=== PATIENT | female | born 1965 | race Caucasian/White ===

== ENCOUNTER 2022-03-07 09:44 | Outpatient (CLI) | payer MEDICAID, SELFPAY ==
[2022-03-07 10:03] LABS: Basophils Absolute Auto 0.02 K/uL (0.00-0.30); Basophils Percent Auto 0.3 % (0.0-3.0); Eosinophils Absolute Auto 0.03 K/uL (0.00-0.50); Eosinophils Percent Auto 0.5 % (0.0-7.0); Hematocrit 38.9 % (33.0-51.0); Hemoglobin* 12.3 gm/dL (12.0-16.0); Lymphocytes Absolute Auto 1.33 K/uL (0.90-2.90); Lymphocytes Percent Auto 21.2 % (20-44); Mean Corpuscular HGB Conc 32 gm/dL (32-36); Mean Corpuscular Hemoglobin 27 pg (26-34); Mean Corpuscular Volume 86 fL (80-100); Monocytes Absolute Auto 0.48 K/UL (0.00-0.90); Monocytes Percent Auto 7.7 % (0.0-11.0); Neutrophils Percent Auto 70.3 % (42.0-72.0); Platelet Count* 276 K/uL (140-440); Red Blood Count 4.55 m/uL (4.00-5.20); White Blood Count* 6.26 K/uL (4.50-11.00)
[2022-03-07 10:12] LABS: Slide Review Reflex No
[2022-03-07 14:52] LABS: Albumin* 4.6 g/dL (3.3-5.0); Chloride* 105 mmol/L (96-114)
[2022-03-07 14:53] LABS: Potassium* 4.7 mmol/L (3.6-5.1); Sodium* 139 mmol/L (135-149)
[2022-03-07 14:55] LABS: Cholesterol* 207 mg/dL (90-199)
[2022-03-07 14:56] LABS: Alanine Aminotransferase* 20 U/L (4-35); Alkaline Phosphatase* 124 U/L (40-150); Aspartate Amino Transferase* 25 U/L (12-35); Bilirubin Total* 0.5 mg/dL (0.1-1.5); Blood Urea Nitrogen* 22 mg/dL (7-30); Calcium* 9.6 mg/dL (8.4-10.6); Carbon Dioxide* 23 mmol/L (20-32); Creatinine* 0.6 mg/dL (0.5-1.5); Estimated Glomerular Filt Rate 107 ml/min; Glucose* 193 mg/dL (60-115); Total Protein* 8.6 g/dL (6.0-8.3); Triglycerides* 121 mg/dL (40-149)
[2022-03-07 14:57] LABS: HDL Cholesterol* 57 mg/dL (>=50); LDL Cholesterol Calculated 126 mg/dL (<100)
[2022-03-07 14:59] LABS: C Reactive Protein* 1.1 mg/dL (0.5-1.0)
[2022-03-07 15:11] LABS: Microalbumin Urine 9 mg/dL
[2022-03-07 15:14] LABS: Creatinine Urine 86.3 mg/dL; Microalbumin Creatinine Ratio 100 mg/g (0-30)
== END 2022-03-07 09:45 | disposition home or self-care (01) ==
PROVIDERS: PCP Family Medicine; Visit Provider Family Medicine
DX: E07.9 Disorder of thyroid, unspecified (principal); G89.29 Other chronic pain; I10 Essential (primary) hypertension; M79.2 Neuralgia and neuritis, unspecified; M79.604 Pain in right leg; Z13.6 Encounter for screening for cardiovascular disorders
CPT/HCPCS: 80053; 80061; 82043; 82570; 85025; 86140; 87086; 87186

== ENCOUNTER 2022-04-02 13:02 | Outpatient (CLI) | payer MEDICAID, SELFPAY ==
[2022-04-02 13:56] LABS: Creatinine* 0.6 mg/dL (0.5-1.5); Estimated Glomerular Filt Rate 107 ml/min
--- NOTE | 2022-04-02 14:00 | CRLHL7_ITS ---
For Patients: As a result of the Century Cures Act, medical imaging exams and procedure reports are released immediately into your electronic medical record. You may view this report before your referring provider. If you have questions, please contact your health care provider. Indication: lower abdominal pain s/p HYSTERECTOMY surgery Technique: Postcontrast CT abdomen and pelvis. 100 cc Isovue 370 intravenous contrast. Please note that all CT scans at this facility use dose modulation, iterative reconstruction, and/or weight-based dosing when appropriate to reduce radiation dose to as low as reasonably achievable. Comparison: None Findings: Incisional hernia is present in the midline of the abdominal wall inferior to the umbilicus measuring 3.5 cm. This hernia contains fat without abscess. No bowel involvement. Additional hernia at the umbilical level measures 3.2 cm and also contains fat. Postop changes to the lower anterior abdominal wall with scar tissue and a trace amount of fluid. No drainable fluid collection. Uterus absent. Bladder is distended. Air is present within the bladder. Normal ureters and kidneys. No hydroureteronephrosis. Adrenal glands normal. Normal spleen and pancreas. Normal liver and gallbladder. No bowel obstruction or evidence of colitis/enteritis. Degenerative facet arthropathy L5-S1. Minimal atelectasis left lower lobe. Impression: Postop changes of hysterectomy. Umbilical and infraumbilical abdominal wall hernias are present containing fat measuring up to 3.5 cm. Distended bladder without hydronephrosis. Air is present within the bladder, likely related to recent catheterization. Please note that all CT scans at this facility use dose modulation, iterative reconstruction, and/or weight-based dosing when appropriate to reduce radiation dose to as low as reasonably achievable. Dictated by Jevon Pyle MD @ 04/03/2022 9:48:56 AM (Electronically Signed)
--- NOTE | 2022-04-02 14:30 | CRLHL7_ITS ---
For Patients: As a result of the Century Cures Act, medical imaging exams and procedure reports are released immediately into your electronic medical record. You may view this report before your referring provider. If you have questions, please contact your health care provider. INDICATION: Worsening back pain. TECHNIQUE: Multiplanar multisequence noncontrast MR images acquired through the lumbar spine. COMPARISON: None. FINDINGS: Mild leftward lumbar curvature. The lumbar lordosis is preserved. Vertebral heights are maintained. No acute fracture or spondylolisthesis. No concerning T1 hypointense marrow replacing lesions. Normal conus terminates at L1. T12-L1 through L2-3: No spinal canal or neural foraminal narrowing. L3-4: Mild disc degeneration. Minimal facet arthropathy. No spinal canal or neural foraminal narrowing. L4-5: Vlqy-cp-oaihtndf disc degeneration. Shallow posterior disc bulge. Rgfe-st-jphtjwlg facet arthropathy. No spinal canal or neural foraminal narrowing. L5-S1: Epidural fat prominence svgj-wt-sjzwlfydpd tapers the thecal sac. Mild disc degeneration. Moderately advanced right and brxd-qn-uuksxkdl left facet arthropathy. Right facet joint effusion. Edema within the right articulating facets. No neural foraminal narrowing. IMPRESSION: 1. Multilevel lumbar spondylosis without spinal canal or neural foraminal stenosis. 2. At L4-5, wpdv-ru-tirpbuei facet arthropathy. 3. At L5-S1, moderately advanced right and ebzr-jd-syuuodba left facet arthropathy. Edema within the right articulating facets likely represents a stress response. Epidural fat prominence ukom-ce-nzuqnehusc tapers the thecal sac. Dictated by Ervin Cool MD @ 04/03/2022 10:51:27 AM (Electronically Signed)
== END 2022-04-02 13:03 | disposition home or self-care (01) ==
LOC: CT 13:05
PROVIDERS: PCP Family Medicine; Visit Provider Family Medicine
DX: R10.9 Unspecified abdominal pain (principal); K43.9 Ventral hernia without obstruction or gangrene; M54.9 Dorsalgia, unspecified; M47.896 Other spondylosis, lumbar region; M79.2 Neuralgia and neuritis, unspecified
CPT/HCPCS: 36415; 72148; 74177; 82565; Q9967

== ENCOUNTER 2022-06-03 11:53 | Outpatient (CLI) | payer MEDICAID, SELFPAY ==
--- NOTE | 2022-06-03 12:15 | CRLHL7_ITS ---
For Patients: As a result of the Century Cures Act, medical imaging exams and procedure reports are released immediately into your electronic medical record. You may view this report before your referring provider. If you have questions, please contact your health care provider. INDICATION: Follow up abdominal wall hernia. New palpable area. TECHNIQUE: Directed soft tissue ultrasound of the anterior abdominal wall. COMPARISON: Correlation is made with an abdominopelvic CT April 02, 2022. FINDINGS: There is a reported new small palpable hernia superior and just to the left of midline above the umbilicus measuring 6.3 x 7.6 cm. There is a midline or perhaps slightly right-sided umbilical hernia containing fat measuring 5.8 x 4 cm. If further imaging evaluation is required, a repeat CT may be helpful. IMPRESSION: Two anterior abdominal wall hernias which appear to contain fat. Dictated by Tyler Wu MD @ 06/03/2022 2:15:32 PM (Electronically Signed)
== END 2022-06-03 11:54 | disposition home or self-care (01) ==
PROVIDERS: PCP Family Medicine; Visit Provider Family Medicine
DX: K43.9 Ventral hernia without obstruction or gangrene (principal)
CPT/HCPCS: 76705; T1013

== ENCOUNTER 2022-06-17 12:47 | Outpatient (CLI) | payer MEDICAID, SELFPAY ==
--- NOTE | 2022-06-17 13:00 | CRLHL7_ITS ---
For Patients: As a result of the Century Cures Act, medical imaging exams and procedure reports are released immediately into your electronic medical record. You may view this report before your referring provider. If you have questions, please contact your health care provider. Indication: Low back pain. History of cancer. Technique: Multiplanar, multisequence MRI of the lumbar spine was performed without and with intravenous contrast. Contrast: 15 cc Dotarem. Comparison: MRI lumbar spine 04/02/2022 Findings: There are 5 lumbar type vertebral segments identified. The vertebral body heights are maintained without evidence of fracture. There is no discrete T1 hypointense marrow infiltrating process. The conus medullaris terminates at L1, normal. Cauda equina appears unremarkable. No abnormal enhancement. T12-L1: No spinal canal or neural foraminal stenosis. L1-2: No spinal canal or neural foraminal stenosis. L2-3: No spinal canal or neural foraminal stenosis. L3-4: No spinal canal or neural foraminal stenosis. L4-5: No spinal canal or neural foraminal stenosis. Moderate facet arthropathy. Stable. L5-S1: No spinal canal or neural foraminal stenosis. Severe facet arthropathy. Stable. The visualized sacroiliac joints appear patent. Right renal cysts. Impression: 1. No spinal canal or neural foraminal narrowing. 2. Moderate to severe facet arthropathy at the L4-5 and L5-S1 levels. Improved edema at the right L5-S1 facet joint. 3. No abnormal enhancement Dictated by Uday Melgoza MD @ 06/17/2022 3:05:39 PM (Electronically Signed)
== END 2022-06-17 12:48 | disposition home or self-care (01) ==
LOC: MRI 12:55
PROVIDERS: PCP Family Medicine; Visit Provider Family Medicine
DX: M54.50 Low back pain, unspecified (principal); C54.1 Malignant neoplasm of endometrium; M79.2 Neuralgia and neuritis, unspecified
CPT/HCPCS: 72158; A9575

== ENCOUNTER 2024-10-11 15:17 | Outpatient (CLI) | payer OTHER, SELFPAY | END 2024-10-11 15:18 | disposition home or self-care (01) | PROVIDERS: Visit Provider Family Medicine | DX: E78.2 Mixed hyperlipidemia (principal); I10 Essential (primary) hypertension; E07.9 Disorder of thyroid, unspecified; E11.9 Type 2 diabetes mellitus without complications; Z79.899 Other long term (current) drug therapy; Z11.59 Encounter for screening for other viral diseases | CPT/HCPCS: 80053; 80061; 82043; 82570; 82607; 83735; 84443; 86803 ==

== ENCOUNTER 2024-12-15 15:28 | Outpatient (CLI) | payer BC, SELFPAY ==
--- NOTE | 2024-12-15 15:30 | CRLHL7_ITS ---
For Patients: As a result of the Century Cures Act, medical imaging exams and procedure reports are released immediately into your electronic medical record. You may view this report before your referring provider. If you have questions, please contact your health care provider. CLINICAL INDICATION: Right hip pain. COMPARISON IMAGING STUDIES: Radiographs from 11/25/2024. CT from 04/02/2022. TECHNICAL: Axial, sagittal and coronal PDFS small field of view images of the right hip. Coronal and axial T1 and PDFS large field of view images of the entire pelvis. 1.5 Lore MR scanner. FINDINGS: RIGHT HIP: No right hip joint effusion. Mild thinning of the articular cartilage. No significant femoral head-neck junction osseous bump. No focal superior acetabular retroversion. Degenerative labral changes with degenerative labral ossification posterior superiorly and labral attenuation anterosuperiorly. LEFT HIP: No left hip joint effusion. There are degenerative labral changes with labral attenuation. The articular surfaces are smooth without focal articular cartilage defect. OSSEOUS STRUCTURES: There is no acute fracture or avascular necrosis. No pathologic marrow replacement process. MUSCULOTENDINOUS STRUCTURES AND BURSAE: Distal gluteal tendons are intact. No trochanteric bursitis. Mild tendinosis of the right common hamstring tendon. Distal iliopsoas tendons are intact. No iliopsoas bursitis. OTHER FINDINGS: Degenerative changes of the sacroiliac joints and within the lower lumbar spine. INTRAPELVIC CONTENTS: There are ventral abdominal wall hernias containing fat and bowel loops. These appear large and have significantly enlarged as compared to the prior CT. Prior hysterectomy. Distended urinary bladder. No change in small inguinal region lymph nodes. Mildly prominent 8 millimeter short axis right external iliac distribution lymph node (e.g. Axial PD fat-sat image number 7 of series 5) has enlarged. IMPRESSION: 1. Mild degenerative changes of the right hip with mild articular cartilage wear. No hip joint effusion. 2. No fracture, marrow replacement process or AVN. 3. Large ventral abdominal wall hernias containing fat and bowel loops, significantly enlarged as compared to prior CT. 4. Degenerative changes of the spine and sacroiliac joints. Dictated by Adam Rodrigues MD @ 12/16/2024 12:49:07 PM (Electronically Signed)
== END 2024-12-15 15:29 | disposition home or self-care (01) ==
LOC: MRI 15:31
PROVIDERS: PCP Family Medicine; Visit Provider Family Medicine
DX: M25.551 Pain in right hip (principal); M16.11 Unilateral primary osteoarthritis, right hip; K43.9 Ventral hernia without obstruction or gangrene; G89.29 Other chronic pain
CPT/HCPCS: 73721

== ENCOUNTER 2025-01-17 10:38 | Outpatient (CLI) | payer BC, SELFPAY ==
--- NOTE | 2025-01-17 10:45 | CRLHL7_ITS ---
For Patients: As a result of the Century Cures Act, medical imaging exams and procedure reports are released immediately into your electronic medical record. You may view this report before your referring provider. If you have questions, please contact your health care provider. INDICATION: Right leg pain. TECHNIQUE: Ultrasound venous duplex lower right extremity. Compression venous exam was performed using noriega-scale, color Doppler, and spectral Doppler analysis. COMPARISON: None. FINDINGS: Sonographic imaging demonstrates the right common femoral, deep femoral, superficial femoral, popliteal, posterior tibial, peroneal, greater saphenous and contralateral left common femoral veins to be fully compressible with normal color Doppler blood flow. Soft tissues elsewhere as imaged are unremarkable. IMPRESSION: No evidence of right lower extremity deep venous thrombosis. Dictated by Dmitri Covington MD @ 01/17/2025 11:45:37 AM (Electronically Signed)
== END 2025-01-17 10:39 | disposition home or self-care (01) ==
LOC: US 10:39
PROVIDERS: PCP Family Medicine; Visit Provider Family Medicine
DX: M79.604 Pain in right leg (principal); M79.89 Other specified soft tissue disorders
CPT/HCPCS: 93971; T1013

== ENCOUNTER 2025-03-03 15:21 | Outpatient (CLI) | payer BC, SELFPAY ==
--- NOTE | 2025-03-03 15:40 | CRLHL7_ITS ---
For Patients: As a result of the Century Cures Act, medical imaging exams and procedure reports are released immediately into your electronic medical record. You may view this report before your referring provider. If you have questions, please contact your health care provider. INDICATION: BILATERAL SCREENING MAMMOGRAM, ASYMPTOMATIC 59 Y/O FEMALE COMPARISON: 08/12/2018, 10/12/2012 TECHNIQUE: Digital mammogram in CC and MLO projections including computer-aided detection (CAD) and tomosynthesis. BREAST COMPOSITION: There are scattered areas of fibroglandular density. FINDINGS: No suspicious findings. ASSESSMENT: BI-RADS 1 Negative RECOMMENDATION: Annual screening mammogram. A lay language report of this examination will be provided to the patient. Dictated by: Jevon Pyle MD @ 03/17/2025 11:06:18 (Electronically Signed)
== END 2025-03-03 15:22 | disposition home or self-care (01) ==
LOC: MAMMO 15:21
PROVIDERS: PCP Family Medicine; Visit Provider Family Medicine
DX: Z12.31 Encounter for screening mammogram for malignant neoplasm of breast (principal)
CPT/HCPCS: 77063; 77067; T1013